=== PATIENT | male | born 1995 | race Caucasian/White ===

== ENCOUNTER 2018-05-20 14:38 | Emergency (ER) | payer SELFPAY ==
[2018-05-20 14:39] VITALS: BP 127/67; PULSE 64; RESP 18; TEMP 36.1; O2SAT 100; BMI 32.1
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
[2018-05-20] MEDS: Ibuprofen 600 MG Tablet PO (16:23)
--- NOTE | 2018-05-20 16:52 | ED.DEP ---
ED Disposition - Plan for ED Patient: Chief Complaint: Upper Extremity Injury Instructions: ED Sprain Wrist Prescriptions: Naproxen [Naprosyn] 500 mg PO BID PRN #20 tablet Referrals: Care Physician,No Primary [Primary Care Provider] - Mauro Brown MD [STAFF PHYSICIAN] -
[2018-05-20 17:02] VITALS: PULSE 66; RESP 14; O2SAT 98
== END 2018-05-20 17:04 | disposition home or self-care (01) ==
PROVIDERS: Emergency Provider Emergency Medicine
DX: S63.072A Subluxation of distal end of left ulna, initial encounter (principal); W22.8XXA Striking against or struck by other objects, initial encounter; Y93.9 Activity, unspecified; Y92.9 Unspecified place or not applicable; Z72.0 Tobacco use
CPT/HCPCS: 29105; 73110; 99282; A4216

== ENCOUNTER 2018-05-25 12:13 | Emergency (ER) | payer SELFPAY ==
[2018-05-25 12:14] VITALS: BP 158/78; PULSE 82; RESP 16; TEMP 36.6; O2SAT 100; BMI 28.0
--- NOTE | 2018-05-25 13:01 | ED.VISSUMM ---
- ER Visit Summary Date of Service: 05/25/18 Chief Complaint: Patient states the pain medicine was prescribed is not effective and that orthopedic requested money upfront otherwise he would not be seen History of Present Illness: The patient is a 23 M who was seen on May 20 after apparent insignificant blunt trauma. X-ray was obtained and revealed abnormal positioning of the ulna. Case was discussed with Dr. Jus Brown. Patient contacted office as instructed. He presents now because he was told he needed to pay a deposit upfront. He states the pain is no better. He was prescribed gabapentin. He denies any paresthesia, anesthesia or motor weakness. Splint noted. Patient does not remove splint. Physical Examination: Vitals noted and blood pressure elevated, 158/78. Refill of digits normal. Sensation is normal. Splint was not removed. X-rays were reviewed. Patient has asked several times for pain medicine. Test Results: Review of prior documentation and x-ray Emergency Department Course and Treatment: Charge nurse Herrera contacted Dr. Tj Brown's office. They stated they would see patient. He was made aware of this. Treatment Plan: Right outpatient follow-up Disposition: Discharged to home Impression: Left wrist pain secondary to trauma This note was generated with [employer] dictation software. It may contain incorrect words, spelling, and punctuation that were not noted in review of the chart prior to signing ED Disposition - Plan for ED Patient: Disposition: Home or Assisted Living Chief Complaint: Upper Extremity Injury Instructions: ED Sprain Wrist Referrals: Care Physician,No Primary [Primary Care Provider] - Mauro Brown MD [STAFF PHYSICIAN] - As soon as possible Additional Instructions: Herrera, the charge nurse, contacted Dr. Tj Brown's office. They agreed to see you in follow-up since she was initially seen in the emergency department and case discussed with Dr. Brown. Elevate wrist above nose. Ice 20-30 minutes at a time 6 to times a day. And take either Advil or Aleve for pain.
[2018-05-25 13:39] VITALS: PULSE 86; RESP 17; O2SAT 97
== END 2018-05-25 13:41 | disposition home or self-care (01) ==
PROVIDERS: Emergency Provider Emergency Medicine
DX: M25.532 Pain in left wrist (principal); S69.92XD Unspecified injury of left wrist, hand and finger(s), subsequent encounter; X58.XXXD Exposure to other specified factors, subsequent encounter
CPT/HCPCS: 99282

== ENCOUNTER 2018-06-20 21:43 | Emergency (ER) | payer SELFPAY ==
[2018-06-20 21:44] VITALS: BP 127/85; PULSE 87; RESP 18; TEMP 37.2; O2SAT 98; BMI 28.7
--- NOTE | 2018-06-20 23:00 | ED.DCSUM_ITS ---
- ER Visit Summary Date of Service: 06/20/18 Chief Complaint: Rash History of Present Illness: The patient is a 23 M who states that last week he had a pimple in his right axilla that he popped. He states that that is healing. He states then he noticed a similar thing down on his right leg. He used tweezers at it got some pus but now notes it surrounded by redness. He feels like it is swollen and is tender and sensitive. Denies any fevers. Denies any history of MRSA abscess. Physical Examination: Afebrile vital signs are stable Gen: Well-nourished well-developed Head: Normocephalic atraumatic Eyes: Perrl EOMI ENT: TMs clear no rhinorrhea moist mucous membranes Neck: Supple no lymphadenopathy no JVD nontender CVS: Regular rate rhythm no murmurs normal S1-S2 Respiratory: No distress clear to auscultation bilaterally chest nontender Abdomen: Soft nontender nondistended normal bowel sounds no masses Back: Nontender Extremity: Right axilla shows a very small healing wound there was probably an infected hair follicle there is no cellulitic changes. The right posterior calf demonstrates approximately 7 cm round of erythema and increased warmth. In the center of this is a nickel sized area of ecchymotic tissue with a central area that appears to have drained pus at one point. There is no lymphangitic streaking. Distally the patient is neurovascularly intact. There is no fluctuance or obvious abscess on exam. Skin: Normal color no rash Neuro: alert orientated ?3 CN II-XII intact normal strength sensation reflexes gait cerebellar Psych: Normal affect normal mood Emergency Department Course and Treatment: Patient be started on Keflex and Bactrim. He was asked to provide warm compresses. The area was outlined in surgical marker was given return instructions. Impression: 1. Right leg cellulitis This note was generated with [employer] dictation software. It may contain incorrect words, spelling, and punctuation that were not noted in review of the chart prior to signing ED Disposition - Plan for ED Patient: Disposition: Home or Assisted Living Chief Complaint: Abscess Instructions: ED Infec Skin Cellulitis Prescriptions: Cephalexin [Keflex] 500 mg PO Q6 #28 cap Smz/Tmp Ds [Bactrim Ds] 1 tab PO BID #14 tab Referrals: Mark Wu MD [STAFF PHYSICIAN] - As Needed Additional Instructions: If worsening or concerns please return to the emergency department Warm compresses as directed Take entire course of antibiotics regularly and do not miss dosing.
[2018-06-20] MEDS: Cephalexin 250 MG Capsule 500 MG PO (23:07)
[2018-06-20] MEDS: Smz/Tmp Ds Tablet 1 TABLET PO (23:07)
[2018-06-20 23:09] VITALS: PULSE 86; RESP 14; O2SAT 99
== END 2018-06-20 23:09 | disposition home or self-care (01) ==
PROVIDERS: Emergency Provider Emergency Medicine
DX: L03.115 Cellulitis of right lower limb (principal)
CPT/HCPCS: 99283

== ENCOUNTER 2018-06-28 22:20 | Emergency (ER) | payer SELFPAY ==
[2018-06-28 22:21] VITALS: BP 113/76; PULSE 126; RESP 16; TEMP 37.1; O2SAT 100; BMI 28.7
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
[2018-06-29 00:20] VITALS: BP 122/86; PULSE 78; RESP 16; O2SAT 97
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
--- NOTE | 2018-06-29 00:20 | ED.DEP ---
ED Disposition - Plan for ED Patient: Chief Complaint: Laceration Instructions: ED Laceration Foot Referrals: Care Physician,No Primary [Primary Care Provider] - Twin Khan MD [STAFF PHYSICIAN] - 10 Day for suture removal
== END 2018-06-29 00:34 | disposition home or self-care (01) ==
PROVIDERS: Emergency Provider Emergency Medicine
DX: S91.312A Laceration without foreign body, left foot, initial encounter (principal); L08.9 Local infection of the skin and subcutaneous tissue, unspecified; B95.8 Unspecified staphylococcus as the cause of diseases classified elsewhere; W26.8XXA Contact with other sharp object(s), not elsewhere classified, initial encounter; Y93.9 Activity, unspecified; Y92.9 Unspecified place or not applicable
CPT/HCPCS: 12001; 99282

== ENCOUNTER 2018-10-31 12:04 | Emergency (ER) | payer SELFPAY ==
[2018-10-31 12:05] VITALS: BP 128/67; PULSE 132; RESP 16; TEMP 36.6; O2SAT 99; BMI 28.5
--- NOTE | 2018-10-31 12:19 | ED.VISSUMM ---
- ER Visit Summary Date of Service: 10/31/18 Chief Complaint: Abscess left axilla History of Present Illness: The patient is a 23 M who presents with an abscess that has been getting worse over the past 3 days. Patient states that pain feels like a tightness in his left axilla. Patient states pain is worse with movement. Patient admits to subjective fevers but did not take his temperature. Patient denies any discharge or drainage. Patient denies any paresthesias or weakness. Patient states the pain does radiate into the back a little. Physical Examination: Vital signs are stable sent for a tachycardia of 132. Patient is afebrile. Patient is in no acute distress. Skin is warm and dry. There is a tender fluctuant area over the left axilla. There is no active discharge or drainage. There is some left axillary adenopathy. Radial pulses are equal bilaterally. Sensation was intact to light touch. Heart was regular and tachycardic. Lungs were clear and equal bilaterally. The remaining physical exam is within normal limits. Emergency Department Course and Treatment: The area was cleaned and prepped in a sterile manner. The area was anesthetized with 1% plain lidocaine locally. A cruciate incision was made with an 11 blade scalpel. Large amount of purulent discharge was expressed. Gauze dressing was applied. Patient tolerated the procedure well. Patient was given prescriptions for Bactrim and Keflex. Patient was instructed to continue using warm compresses to the area. Patient was instructed to follow-up with his primary care physician in 5-7 days. Patient understood and was agreeable with the plan. All questions were answered. Disposition: Discharge home Impression: Left axillary abscess This note was generated with [employer] dictation software. It may contain incorrect words, spelling, and punctuation that were not noted in review of the chart prior to signing ED Disposition - Plan for ED Patient: Disposition: Home or Assisted Living Diagnosis: Abscess of left axilla Instructions: ED Abscess IandD Prescriptions: Cephalexin [Keflex] 500 mg PO Q6 #40 cap Smz/Tmp Ds [Bactrim Ds] 1 tab PO BID #20 tab Referrals: Care Physician,No Primary [Primary Care Provider] - Tho Sim MD [STAFF PHYSICIAN] -
--- NOTE | 2018-10-31 12:22 | ED.DCSUM_ITS ---
- ER Visit Summary Date of Service: 10/31/18 Chief Complaint: Abscess left axilla History of Present Illness: The patient is a 23 M who presents with an abscess that has been getting worse over the past 3 days. Patient states that pain feels like a tightness in his left axilla. Patient states pain is worse with movement. Patient admits to subjective fevers but did not take his temperature. Patient denies any discharge or drainage. Patient denies any paresthesias or weakness. Patient states the pain does radiate into the back a little. Physical Examination: Vital signs are stable sent for a tachycardia of 132. Patient is afebrile. Patient is in no acute distress. Skin is warm and dry. There is a tender fluctuant area over the left axilla. There is no active discharge or drainage. There is some left axillary adenopathy. Radial pulses are equal bilaterally. Sensation was intact to light touch. Heart was regular and tachycardic. Lungs were clear and equal bilaterally. The remaining physical exam is within normal limits. Emergency Department Course and Treatment: The area was cleaned and prepped in a sterile manner. The area was anesthetized with 1% plain lidocaine locally. A cruciate incision was made with an 11 blade scalpel. Large amount of purulent discharge was expressed. Gauze dressing was applied. Patient tolerated the procedure well. Patient was given prescriptions for Bactrim and Keflex. Cindi ent was instructed to continue using warm compresses to the area. Patient was instructed to follow-up with his primary care physician in 5-7 days. Patient understood and was agreeable with the plan. All questions were answered. Disposition: Discharge home Impression: Left axillary abscess This note was generated with [employer] dictation software. It may contain incorrect words, spelling, and punctuation that were not noted in review of the chart prior to signing ED Disposition - Plan for ED Patient: Disposition: Home or Assisted Living Diagnosis: Abscess of left axilla Instructions: ED Abscess IandD Prescriptions: Cephalexin [Keflex] 500 mg PO Q6 #40 cap Smz/Tmp Ds [Bactrim Ds] 1 tab PO BID #20 tab Referrals: Care Physician,No Primary [Primary Care Provider] - Tho Sim MD [STAFF PHYSICIAN] -
[2018-10-31 12:35] VITALS: PULSE 97; RESP 15; O2SAT 100
[2018-10-31 13:18] VITALS: BP 124/74; PULSE 62; RESP 15; O2SAT 99
== END 2018-10-31 13:20 | disposition home or self-care (01) ==
PROVIDERS: Emergency Provider Emergency Medicine
DX: L02.412 Cutaneous abscess of left axilla (principal); R51 Headache; M54.9 Dorsalgia, unspecified
CPT/HCPCS: 10060; 99283

== ENCOUNTER 2019-08-17 00:45 | Emergency (ER) | payer MEDICAID, SELFPAY ==
[2019-08-17 00:46] VITALS: BP 149/91; PULSE 109; RESP 20; TEMP 36.7; O2SAT 99; BMI 33.5
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
[2019-08-17 01:01] VITALS: BP 144/100; PULSE 112; RESP 18; O2SAT 100
--- NOTE | 2019-08-17 01:25 | ED.RN ---
PER PT GIRLFRIEND, PT NAUSEATED
[2019-08-17] MEDS: Ondansetron ODT 4 MG Tablet PO (01:27)
[2019-08-17 02:01] VITALS: BP 138/75; PULSE 104; RESP 18; O2SAT 96
[2019-08-17 02:23] VITALS: BP 129/78; PULSE 94; RESP 16; O2SAT 100
--- NOTE | 2019-08-17 02:23 | ED.RN ---
THIS NURSE REVIEWED D/C INSTRUCTIONS WITH PT. PT VERBALIZED UNDERSTANDING OF INSTRUCTIONS. PT DENIES FURTHER NEEDS OR QUESTIONS AT THIS TIME
== END 2019-08-17 02:24 | disposition home or self-care (01) ==
PROVIDERS: Emergency Provider Emergency Medicine
DX: T40.1X1A Poisoning by heroin, accidental (unintentional), initial encounter (principal); Y92.9 Unspecified place or not applicable; F90.9 Attention-deficit hyperactivity disorder, unspecified type; M54.9 Dorsalgia, unspecified; G89.29 Other chronic pain; F17.200 Nicotine dependence, unspecified, uncomplicated
CPT/HCPCS: 99284

== ENCOUNTER 2022-01-23 09:34 | Emergency (ER) | payer MEDICAID, SELFPAY ==
[2022-01-23 09:35] VITALS: BP 141/91; PULSE 91; RESP 18; TEMP 36.8; O2SAT 93; BMI 31.5
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
[2022-01-23] MEDS: Morphine 4 MG/ML Syringe IV (10:28)
[2022-01-23] MEDS: Ondansetron 4 MG/2 ML Vial IV (10:28)
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
[2022-01-23 10:46] LABS: Absolute Lymphocyte Count 1.68 X10^3/uL (0.83-4.51); Absolute Neutrophil Count 7.2 X10^3/uL (2.0-7.7); Basophil# 0.04 X10^3/uL; Basophil% 0.4 % (0-1); Eosinophil# 0.05 X10^3/uL; Eosinophils% 0.5 % (0-5); Hematocrit 43.8 % (40-54); Hemoglobin 14.6 g/dL (13.0-16.5); Lymphocyte # 1.68 X10^3/ul (0.83-4.51); Lymphocyte % 17.3 % (19-41); Mean Corp Hgb Conc 33.3 g/dL (32-36); Mean Corpuscular Volume 83.9 fL (80-94); Mean Platelet Vol. 11.1 fl (6.2-12.0); Monocyte# 0.69 X10^3/uL; Monocyte% 7.1 % (0-10); NRBC Flagged by Analyzer 0 % (0-5); Neutrophil # 7.22 X10^3/uL (2.7-7.7); Neutrophil % 74.3 % (47-70); Platelet Count 269 K/mm3 (150-450); RBC Distribution Width CV 12.7 % (11.6-14.6); RBC Distribution Width SD 38.6 fl (35.1-43.9); Red Blood Count 5.22 M/mm3 (4.6-6.2); White Blood Count 9.7 K/mm3 (4.4-11.0)
[2022-01-23 11:05] LABS: Anion Gap 4 (5-15); BUN 8 mg/dL (7-18); BUN/Creat Ratio 10.1 RATIO (10-20); Calcium,Total 9.2 mg/dL (8.5-10.1); Chloride 109 mmol/L (98-107); Creatinine, Serum 0.79 mg/dL (0.70-1.30); EST Glomerular Filtration Rate 125 mL/min (>60); Est Glom Filt Rate - Afr Amer 152 mL/min (>60); Estimated Creatinine Clearance 147.59 ml/min; Glucose 108 mg/dL (74-106); Potassium 4.3 mmol/L (3.5-5.1); Sodium Level 139 mmol/L (136-145)
[2022-01-23 11:16] LABS: Bacteria 0 SEEN /hpf (None Seen); Mucous, Urine 0 SEEN /hpf (<or=2+); Red Blood Cells-Urine 0 SEEN /hpf (0-5); Squamous Epithelial Cells - UA 0 SEEN /hpf (0-5); White Blood Cells 0 SEEN /hpf (0-5)
[2022-01-23 11:18] LABS: Color, Urine Yellow (Yellow); Glucose, Dipstick Normal (Normal); Ketone-Dipstick 5 mg/dl (Negative); Leukocyte Esterase-Dipstick 25 /ul (Negative); Nitrite-Dipstick Negative (Negative); Occult Blood-Urine Negative /ul (Negative); Protein-Dipstick 30 mg/dl (Negative); Urine Bilirubin Dipstick Negative (Negative); Urine Clarity Sl. Cloudy (Clear); Urine Urobilinogen Normal (Normal)
[2022-01-23 11:29] LABS: Amorphous Sediment 1+
[2022-01-23 11:35] LABS: Amphetamine Urine VISTA NEGATIVE (<1000 ng/mL); Barbiturate Urine VISTA NEGATIVE (< 200 ng/mL); Benzodiazepine Urine VISTA NEGATIVE (< 200 ng/mL); Cocaine Urine VISTA NEGATIVE (< 300 ng/mL); Ecstacy Urine VISTA NEGATIVE (< 500 ng/mL); Methadone Urine VISTA NEGATIVE (< 300 ng/mL); PCP Urine VISTA NEGATIVE (< 25 ng/mL); THC Urine VISTA POSITIVE (< 50 ng/mL); Vista UDS pH Range 8
[2022-01-23 12:08] VITALS: BP 131/82; PULSE 77; RESP 18; O2SAT 98
== END 2022-01-23 12:16 | disposition home or self-care (01) ==
PROVIDERS: Emergency Provider Student in an Organized Health Care Education/Training Program; Visit Provider Student in an Organized Health Care Education/Training Program
DX: R07.89 Other chest pain (principal); R10.30 Lower abdominal pain, unspecified; S16.1XXA Strain of muscle, fascia and tendon at neck level, initial encounter; V89.2XXA Person injured in unspecified motor-vehicle accident, traffic, initial encounter; Z87.891 Personal history of nicotine dependence; S09.90XA Unspecified injury of head, initial encounter
CPT/HCPCS: 70450; 71260; 72125; 74177; 80048; 80307; 81001; 85025; 93005; 96374; 96375; 99283; Q9967; A4216; J2405

== ENCOUNTER 2023-01-19 19:30 | Emergency (ER) | payer MEDICAID, SELFPAY ==
[2023-01-19 19:32] VITALS: BP 152/86; PULSE 118; RESP 16; TEMP 36.3; O2SAT 96; BMI 36.6
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
--- NOTE | 2023-01-19 19:40 | RAD_ITS ---
STUDY: X-RAY - LEFT FOOT CLINICAL: Male, 27 years old. INJURY TECHNIQUE: 3 view(s) of the foot. COMPARISON: None. FINDINGS: Normal talus, calcaneus, and tarsal bones. Normal visualized subtalar, talonavicular, calcaneocuboid, tarsal and tarsometatarsal articulations. Normal metatarsi. Normal metatarsophalangeal joint of the great toe. Normal tibial and fibular sesamoid bones. Normal interphalangeal joint of the great toe. Normal phalanges of the great toe. Normal second through fifth metatarsophalangeal joints. Normal interphalangeal joints and phalanges of the lesser toes. The soft tissue structures are unremarkable. RAD/Foot min 3 Views IMPRESSION: Normal x-ray examination of the foot. Electronically Signed: Slick Blanc MD at 20:00 EDT ,
[2023-01-19] MEDS: oxyCODONE 5 MG Tablet PO (20:46)
== END 2023-01-19 20:47 | disposition home or self-care (01) ==
PROVIDERS: Emergency Provider Emergency Medicine; Visit Provider Emergency Medicine
DX: S90.30XA Contusion of unspecified foot, initial encounter (principal); Z87.891 Personal history of nicotine dependence; X58.XXXA Exposure to other specified factors, initial encounter
CPT/HCPCS: 73630; 99283

== ENCOUNTER 2023-05-08 13:28 | Emergency (ER) | payer MEDICAID, SELFPAY ==
[2023-05-08 13:28] VITALS: BP 151/95; PULSE 109; RESP 20; TEMP 35.7; O2SAT 98
[2023-05-08 13:52] VITALS: BMI 36.6
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
== END 2023-05-08 14:58 | disposition home or self-care (01) ==
PROVIDERS: Emergency Provider Emergency Medicine; Visit Provider Emergency Medicine
DX: T22.211A Burn of second degree of right forearm, initial encounter (principal); T23.131A Burn of first degree of multiple right fingers (nail), not including thumb, initial encounter; T20.10XA Burn of first degree of head, face, and neck, unspecified site, initial encounter; X08.8XXA Exposure to other specified smoke, fire and flames, initial encounter; Y93.89 Activity, other specified
CPT/HCPCS: 99282

== ENCOUNTER 2023-09-30 02:48 | Emergency (ER) | payer MEDICAID, SELFPAY ==
[2023-09-30 02:49] VITALS: BP 150/92; PULSE 105; RESP 16; TEMP 36.3; O2SAT 98; BMI 36.2
--- NOTE | 2023-09-30 03:06 | RAD_ITS ---
EXAM: XR LEFT ANKLE COMPLETE, 3 OR MORE VIEWS CLINICAL INDICATION: pain TECHNIQUE: Frontal, lateral and oblique views of the left ankle. COMPARISON: No relevant prior studies available. FINDINGS: BONES/JOINTS: Unremarkable. No acute fracture. No subluxation. Normal alignment. Preservation of the joint space. No sclerotic or destructive changes observed. SOFT TISSUES: Mild soft tissue swelling laterally consistent with sprain. No radiopaque foreign body. RAD/Ankle min 3 Views IMPRESSION: Mild soft tissue swelling laterally consistent with sprain. Electronically Signed: Salomon Davenport MD at 3:34 EST ,
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
[2023-09-30] MEDS: oxyCODONE 5 MG Tablet 10 MG PO (03:10)
--- NOTE | 2023-09-30 03:20 | RAD_ITS ---
EXAM: XR LEFT FOOT COMPLETE, 3 OR MORE VIEWS CLINICAL INDICATION: pain TECHNIQUE: Frontal, lateral and oblique views of the left foot. COMPARISON: No relevant prior studies available. FINDINGS: BONES/JOINTS: Unremarkable. No acute fracture. No subluxation. Normal alignment. Preservation of the joint space. No sclerotic or destructive changes observed. SOFT TISSUES: Unremarkable. No soft tissue swelling or gas. No radiopaque foreign body. RAD/Foot min 3 Views IMPRESSION: Negative left foot x-rays. Electronically Signed: Salomon Davenport MD at 3:35 EST ,
--- OUTSIDE RECORDS SUMMARY | 2023-09-30 03:26 | XMS RPT_ITS | CCD ---
Author Name Unknown Address [address] [place] [address] Organization [facility] Results Test Name Value Interpretation Reference Range Facil ity Summary Purpose Family History No Family History Records Found Advance Directives No Advanced Directives Records Found Additional Source Comments (unrecognized sect ion and content) No Status Records Found INFORMATION SOURCE (unrecogn ized section and content) FOR RECORDS PERTAINING TO PATIENTS WHO ARE OR HAVE BEEN ENROLLED IN A CHEMICAL DEPENDENCY/SUBSTANCEABUSE PROGRAM, SOME INFORMATION MAY BE OMITTED. This clinical summary was aggregated from multiple sources. Caution should be exercised in using it in the provision of clinical care. This summary normalizes information from multiple sources, and as a consequence, information in this document may materially change the coding, format and clinical context of patient data. In addition, data may be omitted in some cases. CLINICAL DECISIONS SHOULD BE BASED ON THE PRIMARY CLINICAL RECORDS. [facility] [employer] [facility]. provides no warranty or guarantee of the accuracy or completeness of information in this document.
--- NOTE | 2023-09-30 03:37 | CT_ITS ---
EXAM: CT LEFT LOWER EXTREMITY WITHOUT INTRAVENOUS CONTRAST CLINICAL INDICATION: Foot trauma TECHNIQUE: Helically acquired images were obtained of the left lower extremity ankle and foot without intravenous contrast. 2-D reformats were performed by the technologist. This CT exam was performed using one or more of the following dose reduction techniques: automated exposure control, adjustment of the mA and/or kV according to patient size, and/or use of iterative reconstruction technique. RADIATION DOSE: CTDIvol = 15.35 mGy, DLP = 1280.04 mGy-cm COMPARISON: No relevant prior studies available. FINDINGS: BONES/JOINTS: Unremarkable. No acute fracture. No subluxation. Normal alignment. Preservation of the joint space. No sclerotic or destructive changes. SOFT TISSUES: Unremarkable. No soft tissue swelling or gas. No radiopaque foreign body. CT/Extremity Lower without Contra IMPRESSION: No acute fracture or subluxation. Electronically Signed: Salomon Davenport MD at 4:52 EST ,
[2023-09-30] MEDS: Ketorolac 30 MG/ML Syringe 60 MG IM (05:07)
[2023-09-30 05:37] VITALS: BP 146/70; PULSE 90; RESP 18
== END 2023-09-30 05:38 | disposition home or self-care (01) ==
PROVIDERS: Emergency Provider Emergency Medicine; Visit Provider Emergency Medicine
DX: S00.01XA Abrasion of scalp, initial encounter (principal); M25.572 Pain in left ankle and joints of left foot; Z87.891 Personal history of nicotine dependence; M25.562 Pain in left knee; S70.11XA Contusion of right thigh, initial encounter; W22.8XXA Striking against or struck by other objects, initial encounter; Y92.89 Other specified places as the place of occurrence of the external cause; W19.XXXA Unspecified fall, initial encounter
CPT/HCPCS: 73610; 73630; 73700; 96372; 99283

== ENCOUNTER 2024-10-04 10:31 | Emergency (ER) | payer MEDICAID, SELFPAY ==
[2024-10-04 10:32] VITALS: BP 140/86; PULSE 84; RESP 16; TEMP 36.8; O2SAT 97; BMI 38.0
--- NOTE | 2024-10-04 11:19 | CT_ITS ---
STUDY: CT ABDOMEN AND PELVIS WITH CONTRAST REASON FOR EXAM: Male, 29 years old. Abdominal pain colitis RADIATION DOSAGE (If Supplied By Facility): CTDIvol = ( 15.10 ) mGy, DLP = ( 1261.15 ) mGycm TECHNIQUE: Transaxial images were obtained from the dome of the diaphragm to the symphysis pubis without oral contrast. IV 100mL Isovue-370 was administered. Sagittal and coronal images were reconstructed. Individualized dose optimization techniques were used for this CT. COMPARISON: None. FINDINGS: The visualized lung bases are unremarkable. The visualized portions of the heart are within normal limits. There is decreased attenuation of the liver consistent with steatosis. Normal gallbladder and extrahepatic biliary system. Normal spleen. Normal pancreas. Normal bilateral adrenal glands. Normal right kidney. Normal left kidney. Normal visualized stomach. Normal small intestine. Normal colon. The appendix is visualized and appears normal. Normal abdominal aorta. Normal inferior vena cava. Normal retroperitoneum. Normal urinary bladder. Small bilateral benign-appearing inguinal lymph nodes. Normal osseous structures. CT/Abdomen/Pelvis W IV Cont ONLY IMPRESSION: Diffuse fatty infiltration of the liver. Electronically Signed: Rian Batres MD at 12:24 EST ,
[2024-10-04 11:45] LABS: Absolute Lymphocyte Count 2.23 X10^3/uL (0.83-4.51); Absolute Neutrophil Count 4.9 X10^3/uL (2.0-7.7); Basophil# 0.11 X10^3/uL; Basophil% 1.4 % (0-1); Eosinophil# 0.17 X10^3/uL; Eosinophils% 2.1 % (0-5); Hematocrit 46.3 % (40-54); Hemoglobin 15.3 g/dL (13.0-16.5); Lymphocyte # 2.23 X10^3/ul (0.83-4.51); Lymphocyte % 27.7 % (19-41); Mean Corpuscular Hgb 27.4 pg (27.0-32.0); Mean Corpuscular Volume 82.8 fL (80-94); Mean Platelet Vol. 10.5 fl (6.2-12.0); Monocyte# 0.57 X10^3/uL; Monocyte% 7.1 % (0-10); NRBC Flagged by Analyzer 0 % (0-5); Neutrophil # 4.94 X10^3/uL (2.7-7.7); Neutrophil % 61.3 % (47-70); Platelet Count 313 K/mm3 (150-450); RBC Distribution Width CV 12.6 % (11.6-14.6); RBC Distribution Width SD 37.9 fl (35.1-43.9); Red Blood Count 5.59 M/mm3 (4.6-6.2); White Blood Count 8.1 K/mm3 (4.4-11.0)
--- NOTE | 2024-10-04 11:51 | EX.ED.DYSGE1 ---
HPI History of Present Illness Chief Complaint: Abd Pain Informant: patient Narrative Narrative: 29-year-old male presenting to the emergency room with a several week history of intermittent abdominal discomfort (bloating) and intermittent bright red blood per rectum. He notes the occasional pressure in the rectum. He denies any sharp rectal pain. No fevers. This morning he had vomiting. He notes some indigestion. He denies any previous history of this. He states sometimes the stool is soft sometimes gets formed and sometimes he believes there is mucus with it. He states over the past several weeks he has been having more frequent bowel movements compared to normal. No rashes. No fevers. No history of colitis or familial history of colitis. He denies any recent antibiotics. PFSH PFS Home Medications ?Medication ?Instructions ?Recorded ?Last Taken ?Type pantoprazole 40 mg tablet,delayed 40 mg PO DAILY #30 tabs 10/04/24 Unknown Rx release (Protonix) Allergy/AdvReac Type Severity Reaction Status Date / Time No Known Allergies Allergy Verified 10/04/24 10:56 Family History Grandfather Colon cancer Father Diabetes Social History household members: none current occupational status: employed Smoking Status: Current some day smoker tobacco type: e-cigarettes ROS ROS ED Constitutional Constitutional ED: Denies chills, fever(s) or weight loss Eyes Eyes: Denies change in vision or diplopia ENT ENT ED: Denies ear pain, rhinorrhea or sore throat Cardiovascular Cardiovascular: Denies chest pain, orthopnea, palpitations or racing heartbeat Respiratory/Chest Respiratory/Chest: Denies cough, dyspnea or orthopnea Gastrointestinal Gastrointestinal: Reports abdominal pain, nausea, vomiting and other Details: Bright red blood per rectum ; Denies diarrhea Genitourinary Genitourinary ED: Denies dysuria, hematuria or urinary frequency Musculoskeletal Musculoskeletal: Denies arthralgias or myalgias Integumentary Denies abscess or rash Neurologic Neurologic: Denies headache(s) or weakness Psychiatric Psychiatric: Denies anxiety, depression, suicidal ideation or suicidal thoughts Endocrine Endocrinology: Denies polydipsia, polyphagia or polyuria Allergic/Immunologic Allergic/Immunologic ED: Denies mouth swelling, tongue swelling or urticaria EXAM Physical Exam Const Vital Signs: 10/04/24 10:32 10/04/24 12:31 Temperature 98.2 F Temperature Source Temporal Pulse Rate 84 79 Respiratory Rate 16 18 Blood Pressure 140/86 H 132/86 H Blood Pressure Mean 104 101 Pulse Ox 97 98 Oxygen Delivery Method Room Air Room Air Positive well nourished and well developed General Appearance ED: well developed and NAD HEENT Reports normocephalic, head/scalp atraumatic and moist mucous membranes Eyes PERRL and EOMs intact bilaterally Neck no lymphadenopathy, supple and no JVD Resp normal respiratory effort and clear to auscultation bilaterally Cardio regular rate, regular rhythm and no murmurs GI normal to inspection, nondistended, normoactive bowel sounds and non-tender Palpation: soft Back/Spine no CVA tenderness and normal ROM Extremity normal to inspection General Extremety ED: Negative for edema General Extremity: Negative for edema Neuro oriented x3 and CN's II-XII intact bilaterally Sensorium / Orientation: alert Motor Exam: strength 5/5 throughout Psych mental status grossly normal Mood & Affect: Negative for depressed or tearful Skin no rashes or lesions noted and no wounds MDM MDM MDM Narrative Medical decision making narrative: Differential diagnosis includes but not limited to GERD esophagitis gastric ulcer colitis diverticulitis inflammatory bowel disease internal hemorrhoids anal fissure AVM diverticulosis Patient's white count 8.1 with a hemoglobin of 15.3 and a platelet count of 313. BUN is 14 creatinine 0.[address] normal lipase CT of the abdomen pelvis does not show anything acute. In speaking with the patient more he notes that he gets quite a bit of indigestion with certain foods and pop. He notes it is worse at nighttime. I believe the patient can be discharged home. I will be placing him on Protonix would recommend GI follow-up. We talked about avoidance of taking his phone into the bathroom and avoidance of straining and sitting for prolonged periods. 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 History & Record Review Discussion w/independent historian: Patient Lab Data Attestation: I reviewed the patient's lab results. Labs: Laboratory Results - last 24 hr 10/04/24 11:37 WBC 8.1 RBC 5.59 Hgb 15.3 Hct 46.3 MCV 82.8 MCH 27.4 MCHC 33.0 RDW Std Deviation 37.9 RDW Coeff of Leonardo 12.6 Plt Count 313 MPV 10.5 Immature Gran % (Auto) 0.400 Neut % (Auto) 61.3 Lymph % (Auto) 27.7 Pine % (Auto) 7.1 Eos % (Auto) 2.1 Baso % (Auto) 1.4 H Absolute Neuts (auto) 4.9 Absolute Lymphs (auto) 2.23 Nucleated RBC % 0 Sodium 139 Potassium 4.2 Chloride 106 Carbon Dioxide 28.0 Anion Gap 5 BUN 14 Creatinine 0.98 Estim Creat Clear Calc 150.31 Est GFR (MDRD) Af Amer 116 Est GFR (MDRD) Non-Af 96 BUN/Creatinine Ratio 14.3 Glucose 106 Calcium 9.3 Total Bilirubin 0.40 Direct Bilirubin 0.10 AST 22 ALT 48 Alkaline Phosphatase 104 Total Protein 7.6 Albumin 3.9 Globulin 3.7 Lipase 27 Radiography Diagnostic Testing: Clinical Impression(s) from Imaging Studies Abdomen/Pelvis CT 10/04/24 11:19 IMPRESSION: Diffuse fatty infiltration of the liver. Electronically Signed: Rian Batres MD at 12:24 EST , Discharge Plan Triage Chief Complaint: Abd Pain ED Provider: Douglas Lynn Dx/Rx/DC Orders Clinical Impression: GERD (gastroesophageal reflux disease), Acute lower GI bleeding Instructions: ED GERD (Adult), ED Lower GI Bleeding (Stable) Prescriptions: New pantoprazole [Protonix] 40 mg tablet,delayed release (DR/EC) 40 mg PO DAILY Qty: 30 0RF Primary Care Provider: Care Physician,No Primary Referrals: Arnav Murguia, DO [Med Staff - Active Staff] - As soon as possible (for gi evaluation) Care Physician,No Primary [Primary Care Provider] - Print Language: Slovenian Disposition Disposition: Home, Self Care
[2024-10-04 12:04] LABS: AST(SGOT) 22 U/L (15-37); Alanine Aminotransfer ALT/SGPT 48 U/L (16-61); Albumin, Serum 3.9 g/dL (3.2-5.0); Alkaline Phosphatase 104 U/L (45-117); Anion Gap 5 (5-15); BUN 14 mg/dL (7-18); BUN/Creat Ratio 14.3 RATIO (10-20); Calcium,Total 9.3 mg/dL (8.5-10.1); Chloride 106 mmol/L (98-107); Creatinine, Serum 0.98 mg/dL (0.70-1.30); EST Glomerular Filtration Rate 96 mL/min (>60); Est Glom Filt Rate - Afr Amer 116 mL/min (>60); Estimated Creatinine Clearance 150.31 ml/min; Globulin 3.7 g/dL (2.2-4.2); Glucose 106 mg/dL (74-106); Lipase 27 U/L (13-75); Potassium 4.2 mmol/L (3.5-5.1); Protein, Total 7.6 g/dL (6.4-8.2); Sodium Level 139 mmol/L (136-145)
[2024-10-04 12:31] VITALS: BP 132/86; PULSE 79; RESP 18; O2SAT 98
== END 2024-10-04 13:12 | disposition home or self-care (01) ==
PROVIDERS: Emergency Provider Emergency Medicine; Visit Provider Emergency Medicine
DX: R10.9 Unspecified abdominal pain (principal); K21.9 Gastro-esophageal reflux disease without esophagitis; K62.5 Hemorrhage of anus and rectum; F17.290 Nicotine dependence, other tobacco product, uncomplicated
CPT/HCPCS: 74177; 80048; 80076; 83690; 85025; 99283; Q9967; A4216